=== PATIENT | male | born 1980 | race Caucasian/White ===

== ENCOUNTER 2019-03-25 19:50 | Emergency (ER) | payer MEDICAID ==
--- NOTE | 2019-03-25 20:20 | EDM.PDOC ---
ED HPI GENERAL MEDICAL PROBLEM - General Chief Complaint: Upper Extremity Injury/Pain Stated Complaint: DISLOCATED SHOULDER Time Seen by Provider: 03/25/19 20:27 - History of Present Illness INITIAL COMMENTS - FREE TEXT/NARRATIVE: 39 years old male patient presented with chief complaint of left shoulder pain. Has been going on for 3 weeks. First time was 3 weeks ago when he was trying to get on top of his girlfriend then [facility] X-ray was unremarkable. Pain resolved. Again last night he was trying to do the same thing then started having pain again then resolved last night and then this morning he was trying to do the same thing and started having pain again. Pain is worse with movement. Denies any swelling. No fever. No redness. No deformity. Has been using ibuprofen. Treatments WIRE TINNER: Reports: Acetaminophen, NSAIDS Left Shoulder Pain Score (Numeric/FACES): 4 - Related Data Allergies Allergy/AdvReac Type Severity Reaction Status Date / Time acetaminophen [From Vicodin] Allergy Itching Verified 03/25/19 20:30 hydrocodone bitartrate Allergy Itching Verified 03/25/19 20:30 [From Vicodin] Home Meds: Home Meds Albuterol Sulfate [Accuneb] 1 dose INH Q4H PRN 08/02/13 [History] Albuterol Sulfate [Proair Hfa] 2 puff INH Q4H PRN 08/02/13 [History] Clotrimazole [Lotrimin AF 1% Crm] 30 gm TOP BID PRN 08/02/13 [History] Magnesium 200 mg PO DAILY 03/25/19 [History] Multivitamin [Multi-Day Vitamins] 1 tab PO DAILY 03/25/19 [History] Review of Systems - Review of Systems Review Of Systems: ROS reveals no pertinent complaints other than HPI. ED EXAM, GENERAL - Physical Exam Exam: See Below Exam Limited By: No Limitations General Appearance: Alert, WD/WN, No Apparent Distress Ears: Normal External Exam, Normal Canal, Hearing Grossly Normal, Normal TMs Ear Exam: Bilateral Ear: Auricle Normal, Canal Normal, TM normal Nose: Normal Inspection, Normal Mucosa, No Blood Throat/Mouth: Normal Inspection, Normal Lips, Normal Teeth, Normal Gums, Normal Oropharynx, Normal Voice, No Airway Compromise Head: Atraumatic, Normocephalic Neck: Normal Inspection, Supple, Non-Tender, Full Range of Motion Respiratory/Chest: No Respiratory Distress, Lungs Clear, Normal Breath Sounds, No Accessory Muscle Use, Chest Non-Tender Cardiovascular: Normal Peripheral Pulses, Regular Rate, Rhythm, No Edema, No Gallop, No JVD, No Murmur, No Rub GI/Abdominal: Normal Bowel Sounds, Soft, Non-Tender, No Organomegaly, No Distention, No Abnormal Bruit, No Mass Extremities: Normal Inspection, Normal Range of Motion, Non-Tender, No Pedal Edema, Normal Capillary Refill, Other (Mild tenderness on palpation all Z left shoulder. No swelling no erythema no deformity. CMS intact. Pain limitation of the range of motion.) Neurological: Alert, Oriented, CN II-XII Intact, Normal Cognition, Normal Gait, Normal Reflexes, No Motor/Sensory Deficits Course - Vital Signs Last Recorded V/S: Last Vital Signs Temp 36.1 C 03/25/19 21:23 Pulse 69 03/25/19 21:23 Resp 16 03/25/19 21:23 BP 139/88 03/25/19 21: Pulse Ox 94 L 03/25/19 21:23 - Radiology Interpretation Free Text/Narrative:: Patient was seen and examined shortly after arrival. Stable. Refused pain medication. X-ray shows no acute abnormalities. This is most likely soft tissue injury. Possible rotator cuff. Provided his arm sling. Advised to use Tylenol, ibuprofen, ice. Close follow-up with PCP. MRI of the shoulder if symptom not improving. Come back if symptom worsen. Patient agrees with the plan. Stable for discharge. Departure - Departure Time of Disposition: 21:32 Disposition: Home, Self-Care 01 Condition: Good Clinical Impression: Injury of left shoulder - Discharge Information *PRESCRIPTION DRUG MONITORING PROGRAM REVIEWED*: Not Applicable *COPY OF PRESCRIPTION DRUG MONITORING REPORT IN PATIENT NICOLAS: Not Applicable Referrals: Altaf Alvarez Sr, MD [Primary Care Provider] - Forms: ED Department Discharge - Assessment/Plan Plan: Advised to use Tylenol, ibuprofen, ice. Close follow-up with PCP. MRI of the shoulder if symptom not improving. Come back if symptom worsen
--- NOTE | 2019-03-25 21:14 | CRLCR ---
INDICATION: Shoulder injury TECHNIQUE: Shoulder radiograph 4 views left COMPARISON: None FINDINGS: Bone: No acute fractures or aggressive bone lesions are identified. Joint: The glenohumeral joint is not profiled. The acromioclavicular joint is unremarkable. Soft tissue: Unremarkable. The visualized hemithorax is unremarkable in appearance. No radiopaque foreign bodies are seen. IMPRESSION: 1. No acute osseous injuries or abnormalities are noted. Dictated by: Ethan Simon MD @ 03/25/2019 21:13:25 (Electronically Signed)
== END 2019-03-25 22:01 | disposition home or self-care (01) ==
LOC: JP.ED 19:50
DX: S49.92XA Unspecified injury of left shoulder and upper arm, initial encounter (principal); Z88.5 Allergy status to narcotic agent; Z88.8 Allergy status to other drugs, medicaments and biological substances; X58.XXXA Exposure to other specified factors, initial encounter
CPT/HCPCS: 73030-LT; 99283-25

== ENCOUNTER 2021-10-25 16:37 | Emergency (ER) | payer MEDICAID ==
[2021-10-25 17:50] LABS: ESTIMATED GFR > 60 (>60)
== END 2021-10-25 18:29 | disposition home or self-care (01) ==
LOC: JP.ED 16:37
DX: T50.901A Poisoning by unspecified drugs, medicaments and biological substances, accidental (unintentional), initial encounter (principal); J45.909 Unspecified asthma, uncomplicated; Z88.5 Allergy status to narcotic agent; Z88.6 Allergy status to analgesic agent; Z79.899 Other long term (current) drug therapy
CPT/HCPCS: 36415; 80053; 83735; 84484; 85025; 99282; 99284

== ENCOUNTER → 2023-03-19 | Day surgery (SDC) | payer MEDICAID ==
[~2023-03-19] MED LIST: Acetaminophen/HYDROcodone 325-5 MG Tab PO ONE; Bupivacaine 0.5% 30 ML SDV ONE; Dexamethasone 4 MG/ML SDV ONE; Glycopyrrolate 0.2 MG/ML 5 ML MDV ONE; Ketorolac 30 MG/ML SDV IM ONE; Lactated Ringers 1,000 ML IV SCH; Neostigmine Methylsulfate 1 MG/ML 5 ML Syringe ONE; Nozin Nasal Sanitizer NASBOTH ONE; Ondansetron 4 MG/2 ML SDV ONE; Propofol 200 MG/20 ML SDV ONE; Rocuronium 50 MG/5 ML Vial ONE; Succinylcholine 200 MG/10 ML MDV ONE; Sugammadex Sodium 200 MG/2 ML VIAL ONE; ceFAZolin 2 GM in Premix Bag 1 BAG IV ONE; fentaNYL 250 MCG/5 ML SDV ONE
[2023-03-19 08:39] LABS: HEMATOCRIT 45.4 % (38.4-49.7); HEMOGLOBIN 15.2 g/dL (12.9-16.9); MEAN CORPUSCULAR HEMOGLOBIN 26.3 pg (31.6-35.5); MEAN CORPUSCULAR HGB CONC 33.5 g/dL (31.6-35.5); MEAN CORPUSCULAR VOLUME 78.7 fL (81.4-99.0); RED BLOOD CELL COUNT 5.77 M/uL (4.14-5.76); WHITE BLOOD CELL COUNT,WBC 12.2 K/uL (3.2-11.0)
[2023-03-19 09:03] LABS: A/G RATIO 0.9 (1.2-2.2); ALANINE AMINOTRANSFERASE,ALT 35 U/L (12-78); ALBUMIN 3.5 g/dL (3.4-5.0); ALKALINE PHOSPHATASE 75 U/L (46-116); ANION GAP 10.6 mmol/L (5.0-14.0); ASPARTATE AMNIOTRANSFERASE,AST 17 U/L (15-37); BILIRUBIN TOTAL 0.7 mg/dL (0.2-1.0); BLOOD UREA NITROGEN,BUN 17 mg/dL (7-18); CALCIUM 8.8 mg/dL (8.5-10.1); CARBON DIOXIDE,CO2 26 mmol/L (21-32); CHLORIDE,CL 103 mmol/L (100-108); CREATININE 0.9 mg/dL (0.8-1.3); EST CRCL DRUG DOSING (CG) 122.58 mL/min; ESTIMATED GFR 109 mL/min (>60); GLUCOSE RANDOM 93 mg/dL (74-106); PROTEIN TOTAL,TP 7.5 g/dL (6.4-8.2); SODIUM,NA 140 mmol/L (140-148)
== END ==
LOC: JP.SDS 08:13
PROVIDERS: ATTEND Specialist
DX: S83.231A Complex tear of medial meniscus, current injury, right knee, initial encounter (principal); M22.41 Chondromalacia patellae, right knee; M17.11 Unilateral primary osteoarthritis, right knee; J45.909 Unspecified asthma, uncomplicated; Z88.5 Allergy status to narcotic agent; Z88.8 Allergy status to other drugs, medicaments and biological substances; Z88.7 Allergy status to serum and vaccine
CPT/HCPCS: 36415; 80053; 85027; A9270-GY; J0330; J0690; J1100; J1885; J2405; J2704; J2710; J3010; J3490; J7120

== ENCOUNTER 2023-09-07 10:26 | Emergency (ER) | payer MEDICAID ==
[2023-09-07] MEDS ORDERED: Sodium Chloride 0.9% 1,000 ML IV SCH (11:45)
[2023-09-07 11:56] LABS: CORONAVIRUS COVID-19 NAA NEGATIVE (NEGATIVE); INFLUENZA A NAA NEGATIVE (NEGATIVE); INFLUENZA B NAA NEGATIVE (NEGATIVE); RESPIRATORY SYNCYTIAL VIR NAA NEGATIVE (NEGATIVE)
[2023-09-07] MEDS ORDERED: cefTRIAXone 2 GM in Sodium Chloride 0.9% 50 ML IV ONE (12:40)
[2023-09-07 12:43] LABS: HEMOGLOBIN 15.7 g/dL (12.9-16.9); PLATELET COUNT,PLT 194 K/uL (130-375); WHITE BLOOD CELL COUNT,WBC 7.5 K/uL (3.2-11.0)
[2023-09-07 12:45] LABS: C-REACTIVE PROTEIN 6.72 mg/dL (<0.50); CALCIUM 9.4 mg/dL (8.5-10.1); CREATININE 0.9 mg/dL (0.8-1.3); EST CRCL DRUG DOSING (CG) 126.05 mL/min; POTASSIUM,K 3.9 mmol/L (3.6-5.2)
[2023-09-07 12:47] LABS: BAND ABSOLUTE MAN 0.08 K/uL; BAND PERCENT MAN 1 % (5-11); EOSINOPHILS ABSOLUTE MAN 0.08 K/uL (0.00-0.40); EOSINOPHILS PERCENT MAN 1 % (2-4); LYMPHOCYTES ABSOLUTE MAN 1.28 K/uL (0.8-3.3); LYMPHOCYTES PERCENT MAN 17 % (24-44); MONOCYTES ABSOLUTE MAN 0.53 K/uL (0.20-0.90); MONOCYTES PERCENT MAN 7 % (2-6); NEUTROPHILS ABSOLUTE MAN 5.55 K/uL (1.0-7.6); SEG NEUTROPHILS PERCENT MAN 74 % (36-66)
[2023-09-07 12:48] LABS: ANION GAP 16.9 mmol/L (5.0-14.0)
[2023-09-07] MEDS: Albuterol/Ipratropium 3.0-0.5 MG/3 ML Neb Soln NEB ONE ×2 (12:53→12:56)
[2023-09-07] MEDS ORDERED: Lidocaine 1% 5 ML VIAL ONE (12:56)
[2023-09-07] MEDS: cefTRIAXone 1 GM Vial IM ONE (12:57)
[2023-09-07] MEDS: Lidocaine 1% 5 ML VIAL INJECT ONE (13:04)
== END 2023-09-07 14:00 | disposition home or self-care (01) ==
LOC: JP.ED 10:26
DX: J18.9 Pneumonia, unspecified organism (principal); J45.909 Unspecified asthma, uncomplicated; E66.9 Obesity, unspecified; Z88.8 Allergy status to other drugs, medicaments and biological substances; Z88.5 Allergy status to narcotic agent; Z88.7 Allergy status to serum and vaccine; Z79.51 Long term (current) use of inhaled steroids; Z86.16 Personal history of COVID-19; Z86.19 Personal history of other infectious and parasitic diseases; Z68.43 Body mass index [BMI] 50.0-59.9, adult
CPT/HCPCS: 0241U; 36415; 71046; 80048; 83605; 84145; 85025; 86140; 94640; 96372; 99284; J0696; J7620

== ENCOUNTER 2024-02-11 20:42 | Emergency (ER) | payer MEDICAID | END 2024-02-11 21:09 | disposition home or self-care (01) | LOC: JP.ED 20:42 | DX: L03.115 Cellulitis of right lower limb (principal); I10 Essential (primary) hypertension; E66.9 Obesity, unspecified; Z86.16 Personal history of COVID-19; Z79.899 Other long term (current) drug therapy; Z88.6 Allergy status to analgesic agent; Z88.5 Allergy status to narcotic agent; Z88.7 Allergy status to serum and vaccine; Z68.44 Body mass index [BMI] 60.0-69.9, adult | CPT/HCPCS: 99283 ==

== ENCOUNTER 2024-08-12 01:37 | Emergency (ER) | payer MEDICAID ==
[2024-08-12] MEDS ORDERED: Sodium Chloride 0.9% 10 ML Syringe FLUSH PRN (02:30)
[2024-08-12] MEDS ORDERED: Enalaprilat 1.25 MG/ML SDV IVPUSH ONE (02:30)
[2024-08-12 02:41] LABS: BASOPHILS ABSOLUTE AUTO 0.06 K/uL (0.00-0.10); BASOPHILS PERCENT AUTO 0.4 % (0.1-1.3); EOSINOPHILS ABSOLUTE AUTO 0.33 K/uL (0.00-0.40); EOSINOPHILS PERCENT AUTO 2.3 % (0.0-5.4); HEMATOCRIT 51.6 % (38.4-49.7); HEMOGLOBIN 16.7 g/dL (12.9-16.9); IMMATURE GRAN ABSOLUTE AUTO 0.08 K/uL (0.00-0.23); IMMATURE GRAN PERCENT AUTO 0.6 % (0.0-0.7); LYMPHOCYTES ABSOLUTE AUTO 3.17 K/uL (0.8-3.3); LYMPHOCYTES PERCENT AUTO 21.9 % (11.4-47.7); MEAN CORPUSCULAR HEMOGLOBIN 25.6 pg (31.6-35.5); MEAN CORPUSCULAR HGB CONC 32.4 g/dL (31.6-35.5); MEAN CORPUSCULAR VOLUME 79.1 fL (81.4-99.0); NEUTROPHILS ABSOLUTE AUTO 9.54 K/uL (1.0-7.6); NEUTROPHILS PERCENT AUTO 65.8 % (40.0-78.1); PLATELET COUNT,PLT 256 K/uL (130-375); RED BLOOD CELL COUNT 6.52 M/uL (4.14-5.76); WHITE BLOOD CELL COUNT,WBC 14.5 K/uL (3.2-11.0)
[2024-08-12 02:57] LABS: CALCIUM 9.9 mg/dL (8.5-10.1); CREATININE 0.9 mg/dL (0.8-1.3); EST CRCL DRUG DOSING (CG) 119.6 mL/min
[2024-08-12] MEDS: Lisinopril 10 MG Tab PO ONE (03:21)
== END 2024-08-12 04:40 | disposition home or self-care (01) ==
LOC: JP.ED 01:37
DX: I10 Essential (primary) hypertension (principal); K11.20 Sialoadenitis, unspecified; J45.909 Unspecified asthma, uncomplicated; E66.9 Obesity, unspecified; Z68.43 Body mass index [BMI] 50.0-59.9, adult; Z86.16 Personal history of COVID-19; Z88.5 Allergy status to narcotic agent; Z88.7 Allergy status to serum and vaccine; Z88.8 Allergy status to other drugs, medicaments and biological substances; Z79.51 Long term (current) use of inhaled steroids; Z79.899 Other long term (current) drug therapy
CPT/HCPCS: 36415; 80048; 85025; 93005; 93010; 99284; A9270